=== PATIENT | male | born 1985 | race Caucasian/White ===

== ENCOUNTER 2017-03-14 13:39 | Emergency (ER) | payer BC ==
[2017-03-14 14:43] VITALS: BP 141/87
--- NOTE | 2017-03-14 14:55 | ED ---
Sepsis HPI - HPI Summary HPI Summary: 31 yr old male with the complaint of abscess right hip and right anterior thigh. Onset about a week ago. Pain is moderate. Denies a fever. States they have gotten progressively bigger. He has no history of MRSA in the past. No other complaints. - History of Current Complaint Chief Complaint: [place] Time Seen by Provider: 03/14/17 14:36 Stated Complaint: SKIN COMPLAINT RIGHT LEG Pain Intensity: 7 - Allergy/Home Medications Allergies/Adverse Reactions: Allergies Allergy/AdvReac Type Severity Reaction Status Date / Time No Known Allergies Allergy Verified 03/14/17 14:43 Home Medications: Home Medications NK [No Home Medications Reported] 03/14/17 [History Confirmed 03/14/17] PMH/Surg Hx/FS Hx/Imm Hx Previously Healthy: Yes - Surgical History Hx Anesthesia Reactions: No Infectious Disease History: No Infectious Disease History: Denies: Traveled Outside the [place] in Last 30 Days - Family History Known Family History: Positive: None - Social History Occupation: Employed Full-time - IT person Alcohol Use: None Substance Use Type: Reports: None Smoking Status (MU): Current Every Day Smoker Review of Systems Constitutional: Negative Negative: Fever, Chills Positive: Other - skin abscesses. All Other Systems Reviewed And Are Negative: Yes Physical Exam Triage Information Reviewed: Yes Vital Signs On Initial Exam: Initial Vitals Temp Pulse Resp BP Pulse Ox 98.1 F 121 18 141/87 100 03/14/17 14:37 03/14/17 14:37 03/14/17 14:37 03/14/17 14:37 03/14/17 14:37 Vital Signs Reviewed: Yes Appearance: Positive: Well-Appearing, No Pain Distress Skin: Positive: Other - cellulitis with abscess right hip and right anterior thigh Eyes: Positive: EOMI ENT: Positive: Normal ENT inspection Neck: Positive: Supple Respiratory/Lung Sounds: Positive: Clear to Auscultation, Breath Sounds Present Cardiovascular: Positive: Tachycardia. Negative: Murmur Abdomen Description: Positive: Nontender Musculoskeletal: Positive: Strength/ROM Intact, Other - There is an abscess over the right right hip that is extensive and with fluctuance, and a second abscess over the right anterior thigh with significant induration into the muscle and tenderness. Cellulitis both places. Neurological: Positive: Sensory/Motor Intact, Alert, Oriented to Person Place, Time, CN Intact II-III Psychiatric: Positive: Normal - [place] Coma Scale Best Eye Response: 4 - Spontaneous Best Motor Response: 6 - Obeys Commands Best Verbal Response: 5 - Oriented Coma Scale Total: 15 Diagnostics - Vital Signs Vital Signs Temp Pulse Resp BP Pulse Ox 03/14/17 14:37 98.1 F 121 18 141/87 100 - Laboratory Lab Statement: Any lab studies that have been ordered have been reviewed, and results considered in the medical decision making process. Course/Dx - Course Course Of Treatment: 31 yr with extensive abscess right hip and right anterior thigh. I recommend he go by ambulance to the ER for further evaluation. He is tachycardic without fever. I have explained the risk of sepsis, , disability and he is able to verbalize and understand. he signed out AMA and is having a friend drive him to [place]. - Differential Dx/Clinical Impression Provider Diagnosis: Abscess of right thigh, Abscess of right hip Discharge - Discharge Plan Condition: Good Disposition: AGAINST MEDICAL ADVICE Referrals: No Primary Care Phys,NOPCP [Primary Care Provider] -
== END 2017-03-14 14:55 | disposition left against medical advice (07) ==
LOC: UCCORT 13:39
DX: L02.415 Cutaneous abscess of right lower limb (principal); F17.200 Nicotine dependence, unspecified, uncomplicated
CPT/HCPCS: 99202; G0463